=== PATIENT | male | born 1975 | race Caucasian/White ===

== ENCOUNTER 2021-01-22 23:03 | Inpatient (IN) | payer BC ==
[2021-01-22] MEDS ORDERED: ASPIRIN 81 MG PO STA ×2 (23:10)
[2021-01-22] MEDS ORDERED: SODIUM CHLORIDE 0.9% 1,000 ML IV STA (23:10)
[2021-01-22] MEDS ORDERED: HEPARIN SODIUM 1,000 UN/ML (10ML VL) IV ONE (23:10)
--- NOTE | 2021-01-22 23:14 | ED ---
Chest Pain HPI - General Chief Complaint: Chest Pain Stated Complaint: Possible STEMI Time Seen by Provider: 01/22/21 23:05 Source: patient, EMS, RN notes reviewed, old records reviewed Mode of arrival: EMS Limitations: no limitations - History of Present Illness Initial Comments: This is a 45-year-old male to the ER for evaluation patient presents today for evaluation regards to significant shortness of breath patient has may be a history of high blood pressure, unsure of any other medical history disease. No prior history of heart disease but does have a strong family history of heart disease a young age with his grandfather having heart attack young age. Patient himself has no recent travel history or sick contacts. No fevers no cough or c ongestion. Still short of breath he does feel diaphoretic. Patient was walking with his kids when he became significantly diaphoretic and short of breath with chest pressure. Left-sided chest pressure and pain has continued here in the ER symptoms about a half hour prior to arrival MD Complaint: chest pain -: minutes(s) (30) Onset: during rest, during exertion Pain Location: left chest Pain Radiation: none Severity: moderate Severity scale (1-10): 7 Quality: tightness, heaviness Consistency: constant, intermittent Improves With: nothing Worsens With: exertion Anginal Symptoms: nausea, diaphoresis, dyspnea, sense of impending doom Treatments Prior to Arrival: none - Related Data Allergies Allergy/AdvReac Type Severity Reaction Status Date / Time No Known Allergies Allergy Verified 01/22/21 23:09 Review of Systems ROS Statement: Those systems with pertinent positive or pertinent negative responses have been documented in the HPI. ROS Other: All systems not noted in ROS Statement are negative. Past Medical History History of Any Multi-Drug Resistant Organisms: None Reported Past Psychological History: No Psychological Hx Reported Smoking Status: Never smoker Past Alcohol Use History: None Reported Past Drug Use History: None Reported General Exam - General Exam Comments Initial Comments: Diaphoretic Limitations: no limitations General appearance: anxious Head exam: Present: atraumatic, normocephalic, normal inspection Eye exam: Present: normal appearance, PERRL, EOMI. Absent: scleral icterus, conjunctival injection, periorbital swelling ENT exam: Present: normal exam, mucous membranes moist Neck exam: Present: normal inspection. Absent: tenderness, meningismus, lymphadenopathy Respiratory exam: Present: normal lung sounds bilaterally. Absent: respiratory distress, wheezes, rales, rhonchi, stridor Cardiovascular Exam: Present: regular rate, normal rhythm, normal heart sounds. Absent: systolic murmur, diastolic murmur, rubs, gallop, clicks GI/Abdominal exam: Present: soft, normal bowel sounds. Absent: distended, tenderness, guarding, rebound, rigid Extremities exam: Present: normal inspection, full ROM, normal capillary refill. Absent: tenderness, pedal edema, joint swelling, calf tenderness Back exam: Present: normal inspection Neurological exam: Present: alert, oriented X3, CN II-XII intact Psychiatric exam: Present: normal affect, normal mood Skin exam: Present: warm, dry, intact, normal color. Absent: rash Course Vital Signs 01/22/21 23:05 Temperature 97.7 F Pulse Rate 87 Respiratory 20 Rate Blood Pressure 136/97 O2 Sat by Pulse 98 Oximetry - Reevaluation(s) Reevaluation #1: 01/22/21 23:21 Medical record is reviewed 01/22/21 23:21 Code STEMI was paged upon arrival with patient significant symptoms Reevaluation #2: 01/22/21 23:21 No prior EKG on file Reevaluation #3: 01/22/21 23:21 Spoke with patient regarding symptoms and need for heart catheterization, he understands - Consultations Consultation #1: Spoke with Dr. Duckworth regarding findings, Food Safety Scientist is paged. Consultation #2: Spoke with Dr. Kay regarding admission he agrees Chest Pain MDM - Differential Diagnosis AMI - MDM 45 male DF for evaluation of chest pain pressure diaphoresis, patient will be admitted to the [facility] Safety Scientist for heart catheterization regarding symptoms. Critical Care Time Critical Care Time: Yes Total Critical Care Time: 31 Disposition Clinical Impression: Chest pain, Acute non-ST elevation myocardial infarction (NSTEMI) Disposition: ADMITTED IP TO THIS HOSP Condition: Serious Is patient prescribed a controlled substance at d/c from ED?: No Referrals: Bucky Arboleda MD [Primary Care Provider] - 1-2 days
[2021-01-22] MEDS ORDERED: SODIUM CHLORIDE 0.9% 1,000 ML IV SCH (23:15)
[2021-01-22 23:25] LABS: Basophils # (A) 0.1 k/uL (0-0.2); Basophils % (A) 1 %; Eosinophils # (A) 0.3 k/uL (0-0.7); Eosinophils % (A) 4 %; HCT 43.9 % (39.0-53.0); HGB 15.1 gm/dL (13.0-17.5); Lymphocytes # (A) 3.1 k/uL (1.0-4.8); Lymphocytes % (A) 43 %; MCHC 34.4 g/dL (31.0-37.0); MCV 90.2 fL (80.0-100.0); Mean Platelet Volume 8.6; Monocytes # (A) 0.4 k/uL (0-1.0); Monocytes % (A) 6 %; Neutrophils # (A) 3.1 k/uL (1.3-7.7); Neutrophils % (A) 42 %; Platelet Count 204 k/uL (150-450); RBC 4.87 m/uL (4.30-5.90); RDW 12.6 % (11.5-15.5); WBC 7.3 k/uL (3.8-10.6)
--- NOTE | 2021-01-22 23:25 | XR ---
EXAMINATION TYPE: XR chest 1V DATE OF EXAM: 01/22/2021 COMPARISON: NONE HISTORY: Chest pain TECHNIQUE: Single view FINDINGS: Heart and mediastinum are normal. There is slight increased interstitial markings. There is no pleural effusion. There are no hilar masses. There are chest leads. There is arthritic change in the right shoulder joint. IMPRESSION: Mild increased lung markings. No pulmonary consolidation or heart failure.
--- NOTE | 2021-01-22 23:43 | P.CRDCN ---
History of Present Illness History of present illness: HISTORY OF PRESENTING ILLNESS This is a pleasant 45-year-old with past medical history significant for family history of coronary artery disease and orthopedic complaints. Patient was campi ng and walking with his son earlier today and then started to notice shortness breath, left-sided chest pain radiating down the arm and associated with diaphoresis. It was somewhat off and on however then became more intense. 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 He was given 4 baby aspirin and nitroglycerin with some improvement in his chest pain. Initial EKG showed sinus rhythm with left bundle branch block with accentuated discordant ST elevations in V3 V4 concerning for Scarbossa's criteria however this did improve on repeat EKG by the time he presented to emergency department. Patient still is having ongoing mild chest discomfort however much improved from beginning. He does have a family history of grandfather with [place] in his 40s however has been checked with supposedly normal cholesterol in the past. He does not smoke, drinks a few beers most days, no illicit drugs. No prior history of left bundle-branch block. REVIEW OF SYSTEMS At the time of my exam: CONSTITUTIONAL: Denies fever or chills. CARDIOVASCULAR: +chest pain, +shortness of breath, no orthopnea, PND or palpitations. RESPIRATORY: Denies cough. GASTROINTESTINAL: Denies abdominal pain, diarrhea, constipation, nausea or vomiting. MUSCULOSKELETAL: Denies myalgias. NEUROLOGIC: Denies numbness, tingling or weakness. ENDOCRINE: Denies fatigue, weight change, polydipsia or polyurina. GENITOURINARY: Denies burning, hematuria or urgency with micturation. HEMATOLOGIC: Denies history of anemia or bleeding. PHYSICAL EXAMINATION Vital signs reviewed. CONSTITUTIONAL: Mild distress. HEENT: Head is normocephalic. Pupils are equal, round. Sclerae anicteric. Mucous membranes of the mouth are moist. No JVD. No carotid bruit. CHEST EXAMINATION: Lungs are clear to auscultation. No chest wall tenderness is noted on palpation or with deep breathing. HEART EXAMINATION: Regular rate and rhythm. S1, S2 heard. No murmurs, gallops or rub. ABDOMEN: Soft, nontender. Positive bowel sounds. EXTREMITIES: 2+ peripheral pulses, no lower extremity edema and no calf tenderness. NEUROLOGIC EXAMINATION: Patient is awake, alert and oriented x3. ASSESSMENT 1. New-onset left bundle branch block with initial EKG concerning for Scarbossa's criteria, consistent with STEMI equivalent 2. Chest pain, diaphoresis, shortness breath concerning for acute coronary syndrome 3. Alcohol use 4. Family history of coronary artery disease PLAN Patient with signs and symptoms consistent with acute coronary syndrome. EKG with new onset left bundle branch block concerning for STEMI equivalent. Discussed risks and benefits of heart catheterization and patient is agreeable. Check 2-D echo. Trend troponins. Further recommendations to follow. Past Medical History History of Any Multi-Drug Resistant Organisms: None Reported Past Psychological History: No Psychological Hx Reported Smoking Status: Never smoker Past Alcohol Use History: None Reported Past Drug Use History: None Reported Medications and Allergies Home Medications Medication Instructions Recorded Confirmed Type Diclofenac Sodium [Voltaren] 75 mg PO BID 01/22/21 01/22/21 History Allergies Allergy/AdvReac Type Severity Reaction Status Date / Time No Known Allergies Allergy Verified 01/22/21 23:09 Physical Exam Vitals: Vital Signs Temp Pulse Resp BP Pulse Ox 01/22/21 23:05 97.7 F 87 20 136/97 98 Intake and Output 01/22/21 01/22/21 01/23/21 14:59 22:59 06:59 Other: Weight 97.522 kg Results 01/22/21 23:15 CBC 01/22/21 Range/Units 23:15 WBC 7.3 (3.8-10.6) k/uL RBC 4.87 (4.30-5.90) m/uL Hgb 15.1 (13.0-17.5) gm/dL Hct 43.9 (39.0-53.0) % Plt Count 204 (150-450) k/uL Current Medications Generic Name Dose Route Start Last Admin Trade Name Freq PRN Reason Stop Dose Admin Aspirin 325 mg 01/23/21 09:00 Aspirin 325 Mg Tab PO DAILY RYLAN Sodium Chloride 1,000 mls @ 100 mls/hr 01/22/21 23:10 01/22/21 23:17 Saline 0.9% IV 01/23/21 09:09 100 mls/hr .Q10H STA Administration Sodium Chloride 1,000 mls @ 100 mls/hr 01/22/21 23:15 01/22/21 23:19 Saline 0.9% IV Not Given .Q10H RYLAN Intake and Output 01/22/21 01/22/21 01/23/21 14:59 22:59 06:59 Other: Weight 97.522 kg Patient Weight 01/23/21 06:59 Weight 97.522 kg 01/22/21 23:15
[2021-01-22 23:44] LABS: INR 0.9 (<1.2); Prothrombin Time 10.1 sec (9.0-12.0)
[2021-01-22 23:46] LABS: ALT 33 U/L (4-49); AST 40 U/L (17-59); African American GFR (CKD) >90 (>60 ml/min/1.73 sqM); Albumin 4.1 g/dL (3.5-5.0); Alkaline Phosphatase 51 U/L (38-126); Anion Gap 10 mmol/L; Blood Urea Nitrogen 21 mg/dL (9-20); Calcium 9.3 mg/dL (8.4-10.2); Carbon Dioxide 21 mmol/L (22-30); Chloride 110 mmol/L (98-107); Creatine Kinase 236 U/L (55-170); Glucose 141 mg/dL (74-99); Magnesium 1.9 mg/dL (1.6-2.3); Non-African American GFR(CKD) >90 (>60 ml/min/1.73 sqM); Potassium 3.8 mmol/L (3.5-5.1); Sodium 141 mmol/L (137-145); Total Bilirubin 0.3 mg/dL (0.2-1.3); Total Protein 6.6 g/dL (6.3-8.2)
[2021-01-22] MEDS ORDERED: LIDOCAINE 1% INJ 10MG/ML (20 ML MDV) ONE (23:46)
[2021-01-22] MEDS ORDERED: HEPARIN SODIUM 1,000 UN/ML (10ML VL) ONE (23:46)
[2021-01-22] MEDS ORDERED: VERAPAMIL 2.5 MG/ML 2 ML AMP ONE (23:46)
[2021-01-22] MEDS ORDERED: IV FLUID CONTINUATION 1,000 ML IV ONE (23:50)
[2021-01-22] MEDS ORDERED: fentaNYL (PF) 50 MCG/ML 2 ML AMP ONE (23:52)
[2021-01-22] MEDS: fentaNYL (PF) 50 MCG/ML 2 ML AMP IV ONE (23:52)
[2021-01-22] MEDS: MIDAZOLAM 2 MG/2 ML VIAL IV ONE (23:52)
[2021-01-22] MEDS ORDERED: LIDOCAINE 1% INJ 10MG/ML (20 ML MDV) SQ ONE (23:52)
[2021-01-22 23:53] LABS: Partial Thromboplastin Time 21.3 sec (22.0-30.0)
[2021-01-22] MEDS ORDERED: VERAPAMIL SYRINGE (5 MG/10 ML) INTRAARTER ONE (23:54)
[2021-01-22 23:57] LABS: Creatine Kinase MB 1.8 ng/mL (0.0-2.4); Troponin I 0.016 ng/mL (0.000-0.034)
[2021-01-23] MEDS ORDERED: TICAGRELOR 90 MG TAB ONE (00:09)
[2021-01-23] MEDS ORDERED: IOPAMIDOL-370 125ML BTL INJ ONE (00:10)
[2021-01-23] MEDS ORDERED: TICAGRELOR 90 MG TAB PO ONE (00:13)
[2021-01-23] MEDS: NITROGLYCERIN 1000MCG/10ML SYRINGE INTRACORON ONE ×7 (00:17→01:05)
[2021-01-23] MEDS ORDERED: NITROGLYCERIN-D5W PMX 50 MG in DEXTROSE/WATER 1 250ML.BAG IV ONE (00:38)
[2021-01-23] MEDS ORDERED: IOPAMIDOL-370 100ML BTL INJ ONE ×2 (00:46→01:09)
[2021-01-23] MEDS: MIDAZOLAM 2 MG/2 ML VIAL IV ONE (00:52)
[2021-01-23] MEDS: fentaNYL (PF) 50 MCG/ML 2 ML AMP IV ONE (00:52)
[2021-01-23] MEDS ORDERED: hydrALAZINE HCL 20 MG/ML 1 ML VIAL ONE (01:07)
[2021-01-23] MEDS: hydrALAZINE HCL 20 MG/ML 1 ML VIAL IV ONE ×2 (01:09→01:14)
[2021-01-23] MEDS ORDERED: FUROSEMIDE 10 MG/ML 4 ML VIAL ONE (01:32)
[2021-01-23] MEDS ORDERED: FUROSEMIDE 10 MG/ML 4 ML VIAL IV ONE (01:33)
[2021-01-23] MEDS ORDERED: ATROPINE SULFATE 0.1 MG/ML 10ML SYRINGE IV PRN (01:50)
[2021-01-23] MEDS ORDERED: ZOLPIDEM 5 MG TAB PO PRN (01:50)
[2021-01-23] MEDS ORDERED: MAG HYDROX/AL HYDROX/SIMETH 30 ML CUP PO PRN (01:50)
[2021-01-23] MEDS ORDERED: NITROGLYCERIN SL TABS 0.4 MG TAB SUBLINGUAL PRN (01:50)
[2021-01-23] MEDS ORDERED: RX INFO: IV CONTRAST WAS GIVEN 1 EACH MISC MISCELLANE PRN (01:50)
[2021-01-23 01:52] LABS: Glucose,Whole Blood 127 mg/dL (75-99)
--- NOTE | 2021-01-23 02:13 | P.PRCINT ---
Percutaneous Coronary Int. - Percutaneous Coronary Intervention Percutaneous Coronary Intervention: PROCEDURES PERFORMED: Left heart catheterization, bilateral coronary angiography, PCI proximal LAD with a 3.25 x 18mm Xience ALFREDO, with kissing balloon angioplasty of LAD and diagonal 2 branch, Penumbra aspiration thromb ectomy INDICATION: ACS, STEMI equivalent HISTORY: Patient is pleasant 45-year-old male with a family history of grandfather with [place] in his 40s, occasional alcohol use who presented with chest pain while walking to his children while camping. Chest pain was somewhat off and on however he recognizes symptoms early and presented to ER with new left bundle-branch block, shortness breath and diaphoresis and therefore STEMI alert was notified. Given new left bundle-branch block in typical symptoms left heart catheterization was recommended. CONSENT:I have discussed the risks, benefits and alternative therapies for the above-mentioned procedure and for both sedation/analgesia as well as necessary blood product administration, if indicated, as they pertain to this patient. The patient has indicated understanding and acceptance of the risks and procedures discussed. PROCEDURE: After the risks, benefits and alternatives of the above mentioned procedure explained in detail with the patient, informed consent was obtained. Patient was taken to the catheterization lab and prepped and draped in usual fashion. 1% lidocaine was used to anesthetize the right radial artery. A 6- Lao sheath was placed in the right radial artery using modified Seldinger technique. Left coronary angiography was performed with a 5-Lao JL 3.5 catheter and right coronary angiography was performed with a 5-Lao JR5 catheter in various views. A 5-Lao FR5 catheter was inserted into the left ventricle and pressure measurements were obtained. The decision was made to perform PCI of the LAD. A 6-Lao CLS 3.5 guide was used to engage the left main. Heparin was given for ACT greater than 250. A 0.014 BMW wire was advanced into the distal LAD and penumbra aspiration was performed given high thrombus burden. There was additional involvement of the diagonal 2 branch and therefore a 0.014 whisper wire was inserted into the distal diagonal 2 branch. Balloon angioplasty was performed of the ostium of the diagonal 2 branch with a 2.5 x 12 mm wound and then a 3.0 x 15 mm balloon. Next balloon angioplasty was performed of the LAD with a 3.0 x 15 mm balloon. Next a 3.25 x 18 mm Xience ALFREDO was placed just distal to the diagonal 1 branch and jailing the diagonal 2 branch. There was significant "pinching" of the diagonal 2 branch and therefore a second 0.014 BMW wire was advanced into the diagonal 2 branch and the initial whisper wire was removed. Next balloon angioplasty was performed of the diagonal 2 branch with a 2.0 x 12 mm balloon through the stent struts. Next a kissing angioplasty was performed with a 3.0 x 12 mm noncompliant balloon in the LAD and a 2.5 x 15 mm noncompliant balloon in the diagonal 2 branch. The wires were pulled and final angiograms were performed. Preintervention there was WENCESLAO 3 flow of the LAD and diagonal 2 branch with 95% stenosis of the LAD and 95% stenosis of the diagonal 2 branch and postintervention there was less than 10% stenosis of the LAD and 30% stenosis of the diagonal 2 branch which was ballooned with WENCESLAO 3 flow of both. Patient was still having mild chest pain throughout the case felt related to distal embolization and microvascular dysfunction. The right radial sheath was removed and a TR band was placed with hemostasis achieved. The patient tolerated the procedure well. Patient was transported back to the post catheterization holding area in stable condition. Conscious Sedation: Patient was monitored under the direct supervision of vision of myself for conscious sedation using Versed and fentanyl for a total duration of 90 minutes HEMODYNAMICS: Ao: 128/92 LV: 130/12, LVEDP 31 mmHG SELECTIVE CORONARY ARTERIOGRAPHY: LEFT MAIN: The left main is a large caliber vessel which bifurcates into the LAD and circumflex. There is no significant stenosis. LEFT ANTERIOR DESCENDING CORONARY ARTERY: LAD is a large caliber vessel which wraps around to the apex. There is a proximal LAD 95% stenosis extending into the diagonal 2 branch with a large amount of thrombus. Diagonal 2 has a 95% ostial stenosis. There is mid LAD 20% stenosis and otherwise normal LAD. LEFT CIRCUMFLEX CORONARY ARTERY: Left circumflex is a large caliber vessel with only mild luminal irregularities. The circumflex supplies the PDA and is the dominant vessel. There are mild luminal irregularities of the circumflex. RIGHT CORONARY ARTERY: The right coronary artery is a small caliber vessel which gives off an acute marginal branch and has no signficant stenosis and is nondominant. FINAL IMPRESSION: 1. CAD as described above including proximal LAD 95% and diagonal 2 95% stenosis at the level of the LAD/diagonal 2 bifurcation. 2. Severely elevated left filling pressures 3. S/p PCI proximal LAD with a 3.25 x 18mm Xience ALFREDO, with kissing balloon angioplasty of LAD and diagonal 2 branch PLAN: 1. Aggressive risk factor modification per most recent ACC/AHA guidelines. 2. Continue dual antiplatelets for 12 months.
[2021-01-23] MEDS ORDERED: NITROGLYCERIN-D5W PMX 50 MG in DEXTROSE/WATER 1 250ML.BAG IV SCH (02:30)
[2021-01-23] MEDS: METOPROLOL TARTRATE 25 MG TAB PO SCH ×3 (02:37→21:32)
[2021-01-23] MEDS: HEPARIN SOD,PORK IN 0.45% NACL 25,000 UNIT in 0.45% NACL 1 250ML.BAG IV SCH ×2 (03:11→23:30)
[2021-01-23] MEDS: SODIUM CHLORIDE 0.9% 1,000 ML IV SCH (03:13)
[2021-01-23 04:21] LABS: African American GFR (CKD) >90 (>60 ml/min/1.73 sqM); Anion Gap 7 mmol/L; Blood Urea Nitrogen 20 mg/dL (9-20); Calcium 8.9 mg/dL (8.4-10.2); Carbon Dioxide 22 mmol/L (22-30); Chloride 108 mmol/L (98-107); Glucose 162 mg/dL (74-99); Non-African American GFR(CKD) >90 (>60 ml/min/1.73 sqM); Sodium 137 mmol/L (137-145)
[2021-01-23 04:21] LABS: Basophils % (A) 0 %; Eosinophils % (A) 0 %; HCT 40.2 % (39.0-53.0); HGB 13.8 gm/dL (13.0-17.5); Lymphocytes # (A) 0.9 k/uL (1.0-4.8); Lymphocytes % (A) 11 %; MCH 30.7 pg (25.0-35.0); MCHC 34.2 g/dL (31.0-37.0); MCV 89.9 fL (80.0-100.0); Mean Platelet Volume 8.2; Monocytes # (A) 0.5 k/uL (0-1.0); Monocytes % (A) 6 %; Neutrophils # (A) 7.1 k/uL (1.3-7.7); Neutrophils % (A) 82 %; Platelet Count 214 k/uL (150-450); RBC 4.48 m/uL (4.30-5.90); RDW 13.2 % (11.5-15.5); WBC 8.7 k/uL (3.8-10.6)
[2021-01-23 04:22] LABS: Partial Thromboplastin Time 39.8 sec (22.0-30.0); Prothrombin Time 10.6 sec (9.0-12.0)
[2021-01-23] MEDS: ASPIRIN 81 MG PO SCH (08:24)
[2021-01-23] MEDS: SPIRONOLACTONE 25 MG TAB PO SCH (08:24)
[2021-01-23] MEDS: ATORVASTATIN 80 MG TAB PO SCH (08:24)
[2021-01-23] MEDS: FUROSEMIDE 20 MG TAB PO SCH ×2 (08:24→21:31)
[2021-01-23] MEDS: HEPARIN SODIUM 1,000 UN/ML (10ML VL) IV PRN (08:24)
[2021-01-23] MEDS: TICAGRELOR 90 MG TAB PO SCH ×2 (08:38→21:31)
[2021-01-23] MEDS ORDERED: ASPIRIN 325 MG TAB PO SCH (09:00)
[2021-01-23] MEDS ORDERED: ISOSORBIDE MONONITRATE ER 30 MG TAB.ER.24H PO SCH (09:00)
[2021-01-23 09:56] LABS: Chol/HDL Ratio 3.97; LDL Cholesterol,Calculated 100.2 mg/dL (0.0-131.0); VLDL Calculation 12.8 mg/dL (5.00-40.00)
[2021-01-23 10:15] VITALS: BMI 28.9
--- NOTE | 2021-01-23 11:53 | ECHOF ---
Referral Reason:mi MEASUREMENTS -------- HEIGHT: 188.0 cm WEIGHT: 102.1 kg BP: 102/62 RVIDd: 3.0 cm (< 3.3) IVSd: 1.6 cm (0.6 - 1.1) LVIDd: 5.2 cm (3.9 - 5.3) LVPWd: 1.4 cm (0.6 - 1.1) IVSs: 1.9 cm LVIDs: 3.7 cm LVPWs: 1.9 cm LA Diam: 3.7 cm (2.7 - 3.8) LAESV Index (A-L): 25.07 ml/m Ao Diam: 3.5 cm (2.0 - 3.7) AV Cusp: 2.6 cm (1.5 - 2.6) MV EXCURSION: 20.477 mm (> 18.000) MV EF SLOPE: 130 mm/s (70 - 150) EPSS: 0.7 cm MV E Quique: 0.84 m/s MV DecT: 151 ms MV A Quique: 0.73 m/s MV E/A Ratio: 1.15 TAPSE: 19.78 mm FINDINGS -------- Sinus rhythm. This was a technically good study. The left ventricular size is normal. There is moderate concentric left ventricular hypertrophy. O verall left ventricular systolic function is moderately impaired with, an EF between 35 - 40 %. Api [place] anterior LV wall motion is hypokinetic. Apical lateral LV wall motion is hypokinetic. Apica l inferior LV wall motion is hypokinetic. Apical septum LV wall motion is hypokinetic. The right ventricle is normal in size. Normal LA size by volume 22+/-6 ml/m2. The right atrium is normal in size. Interatrial and interventricular septum intact. The aortic valve is trileaflet, and appears structurally normal. No aortic stenosis or regurgitation. There is trace to mild mitral regurgitation. The tricuspid valve appears structurally normal. Unable to estimate RVSP due to inadequate TR jet s pectral doppler profile. The pulmonic valve is normal. The aortic root size is normal. Normal inferior vena cava with normal inspiratory collapse consistent with estimated right atrial pre ssure of 5 mmHg. There is no pericardial effusion. CONCLUSIONS -------- 1. The left ventricular size is normal. 2. There is moderate concentric left ventricular hypertrophy. 3. Overall left ventricular systolic function is moderately impaired with, an EF between 35 - 40 %. 4. Apical anterior LV wall motion is hypokinetic. 5. Apical lateral LV wall motion is hypokinetic. 6. Apical inferior LV wall motion is hypokinetic. 7. Apical septum LV wall motion is hypokinetic. 8. The aortic valve is trileaflet, and appears structurally normal. No aortic stenosis or regurgitati on. 9. There is trace to mild mitral regurgitation. 10. There is no pericardial effusion. IOS ARCHITECT: Maria D Durant RDCS
--- NOTE | 2021-01-23 12:18 | P.HPIM ---
History of Present Illness H&P Date: 01/23/21 HISTORY OF PRESENT ILLNESS This is a 45-year-old male patient of Dr. Arboleda with history of OA right shoulder s/p injections. Patient states that he was camping with his family and he was carrying his son started developing a little bit of chest pain which she has had before but it usually goes away. He went to carry his second son who is rust proofer in weight had increasing tightness, pain in the left arm, sweats, nausea, palpitations and lightheadedness. EMS was contacted and patient was transferred to [facility] emergency center for evaluation. Vi herlinda signs are stable. EKG was a left bundle branch block with ST elevation in V3 V4, cardiology was contacted and patient was taken emergently to the laborer wrecking and salvaging and underwent left heart catheterization, bilateral coronary angiography, PCI proximal LAD with a 3.25 x 18mm Xience ALFREDO, with kissing balloon angioplasty of LAD and diagonal 2 branch, Penumbra aspiration thrombectomy with Dr. Duckworth. Patient is currently maintained in the intensive care unit on heparin drip and nitroglycerin drip. He states he occasionally gets some chest pain on the left side. He has been hemodynamically stable. REVIEW OF SYSTEMS Constitutional: No fever, no chills, Reported sweats. No weight change. No weakness, fatigue or lethargy. No daytime sleepiness. EENT: No headache. No blurred vision or double vision, no loss of vision. No dizziness. No nasal drainage or congestion. No epistaxis. No sore throat. Lungs: No shortness of breath, cough, no sputum production. No wheezing. Cardiovascular: Reported chest pain, no lower extremity edema. No palpitations. No paroxysmal nocturnal dyspnea. No orthopnea. No lightheadedness or dizziness. No syncopal episodes. Abdominal: No abdominal pain. Reported nausea, vomiting. No diarrhea. No constipation. No bloody or tarry stools. No loss of appetite. Genitourinary: No dysuria, increased frequency, urgency. No urinary retention. Musculoskeletal: No myalgias. No muscle weakness, no gait dysfunction, no frequent falls. No back pain. No neck pain. Integumentary: No wounds, no lesions. No rash or pruritus. No unusual bruising. No change in hair or nails. Neurologic: No aphasia. No facial droop. No change in mentation. No head injury. No headache. No paralysis. No paresthesia. Psychiatric: No depression. No anxiety. No mood swings. Endocrine: No abnormal blood sugars. MEDICAL HISTORY Osteoarthritis right shoulder SURGICAL HISTORY Ankle surgery SOCIAL HISTORY Patients smoked for a few years while he was in the [employer] at less than pack per day for 5 years. He does drink alcohol about 3 drinks on his nights off work. Patient lives at home with his and 2 sons. 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 FAMILY HISTORY Mother is alive at age 68 with history of hypertension and smoking. Father at age 58 from consultations from diabetes. Patient has a total of 6 siblings and one sister has passed at age 33 from a brain cancer. All other siblings are alive with no major medical problems and no cardiac history. Patient has 1 paternal grandfather that of a myocardial infarction in his 30s. Patient has 2 sons and one 7-year-old has neuroblastoma. Second son has no major medical problems. PHYSICAL EXAMINATION Gen: This is a 45-year-old male. He is resting in the ICU bed and appears to be comfortable and in no acute distress. HEENT: Head is atraumatic, normocephalic. Pupils equal, round. Sclerae is anicteric. NECK: Supple. No JVD. No lymphadenopathy. No thyromegaly. LUNGS: Clear to auscultation. No wheezes or rhonchi. No intercostal retractions. HEART: Regular rate and rhythm. No murmur. ABDOMEN: Soft. Bowel sounds are present. No masses. No tenderness. EXTREMITIES: No pedal edema. No calf tenderness. Dorsalis pedis +2 bilaterally. NEUROLOGICAL: Patient is awake, alert and oriented x3. Cranial nerves 2 through 12 are grossly intact. ASSESSMENT AND PLAN 1. New-onset left bundle branch block with initial EKG concerning for Scarbossa's criteria, consistent with STEMI equivalent. Status post left heart catheterization, bilateral coronary angiography, PCI LAD with kissing balloon angioplasty of the LAD and diagonal 2 branch, aspiration thrombectomy. Patient is maintained in the intensive care unit. He is currently on heparin drip and nitroglycerin drip. Continue aspirin 81 mg daily, Lipitor 80 mg daily, Lasix 20 mg twice daily, Imdur 30 mg daily, lisinopril 2.5 mg twice daily, Lopressor 25 mg twice daily, Aldactone 25 mg daily, Brilinta 90 mg twice daily. Echocardiogram is pending 2. Osteoarthritis right shoulder, stable. 3. Alcohol use. 4. GI prophylaxis. Protonix. 5. DVT prophylaxis. Heparin. DISCHARGE PLAN Home Impression and plan of care have been directed as dictated by the signing physician. Sushila Segovia nurse practitioner acting as scribe for signing physician. Past Medical History Past Medical History: Hypertension, Myocardial Infarction (IA) Last Myocardial Infarction Date:: 01/22/21 History of Any Multi-Drug Resistant Organisms: None Reported Past Surgical History: Heart Catheterization With Stent Date of Last Stent Placement:: 01/22/21 Past Psychological History: No Psychological Hx Reported Smoking Status: Former smoker Past Alcohol Use History: Occasional Additional Past Alcohol Use History / Comment(s): drinks approximately 10 "drinks" per week Past Drug Use History: None Reported - Past Family History Father Family Medical History: Diabetes Mellitus Mother Family Medical History: Hypertension Medications and Allergies Home Medications Medication Instructions Recorded Confirmed Type Diclofenac Sodium [Voltaren] 75 mg PO BID 01/22/21 01/22/21 History Ticagrelor [Brilinta] 90 mg PO BID #60 tab 01/23/21 Rx Allergies Allergy/AdvReac Type Severity Reaction Status Date / Time No Known Allergies Allergy Verified 01/22/21 23:09 Physical Exam Vitals: Vital Signs Temp Pulse Resp BP Pulse Ox 01/23/21 09:00 73 16 116/82 96 01/23/21 08:00 98 F 66 16 117/75 97 01/23/21 07:00 75 11 L 102/62 97 01/23/21 06:45 76 11 L 105/60 97 01/23/21 06:30 73 18 114/74 97 01/23/21 06:15 72 19 115/71 97 01/23/21 06:00 98.5 F 68 16 111/59 97 01/23/21 05:45 77 16 106/63 97 01/23/21 05:30 84 17 110/63 97 01/23/21 05:15 75 17 123/79 96 01/23/21 05:00 71 17 116/72 96 01/23/21 04:45 75 14 123/75 96 01/23/21 04:30 82 16 119/78 96 01/23/21 04:15 80 19 123/78 97 01/23/21 04:00 98.5 F 84 16 124/70 98 01/23/21 03:45 89 11 L 116/73 97 01/23/21 03:41 96 01/23/21 03:30 86 11 L 108/74 96 01/23/21 03:15 86 10 L 112/72 94 L 01/23/21 03:00 78 12 112/71 97 01/23/21 02:45 84 23 114/71 95 01/23/21 02:30 82 15 95 01/23/21 02:20 18 01/23/21 02:15 84 13 127/85 96 01/23/21 02:00 81 12 119/81 96 01/22/21 23:35 78 12 141/103 98 01/22/21 23:30 80 12 131/101 98 01/22/21 23:25 79 12 136/104 99 01/22/21 23:15 80 12 133/100 98 01/22/21 23:05 97.7 F 87 20 136/97 98 Intake and Output 01/22/21 01/23/21 01/23/21 22:59 06:59 14:59 Intake Total 820 239.25 Output Total 1200 Balance -380 239.25 Intake: IV 820 40 Sodium Chloride 0.9% 1, 120 40 000 ml @ 20 mls/hr IV . Q24H RYLAN Rx#:[id number] Intake, IV Titration 199.25 Amount Heparin Sod,Pork in 0.45% 46 NaCl 25,000 unit In 0.45 % NaCl 1 250ml.bag @ 10. 254 UNITS/KG/HR 10 mls/hr IV .Q24H RYLAN Rx#: [id number] Nitroglycerin-D5w Pmx 50 153.25 mg In Dextrose/Water 1 250ml.bag @ 100 MCG/MIN 30 mls/hr IV .Q8H20M RYLAN Rx#:[id number] Output: Urine 1200 Other: # Voids 1 Weight 102.3 kg 102.3 kg Results CBC & Chem 7: 01/23/21 03:23 01/23/21 03:28 Labs: Abnormal Lab Results - Last 24 Hours (Table) 01/22/21 01/22/21 01/23/21 Range/Units 23:15 23:15 01:49 Lymphocytes # (1.0-4.8) k/uL APTT 21.3 L (22.0-30.0) sec Chloride 110 H (98-107) mmol/L Carbon Dioxide 21 L (22-30) mmol/L BUN 21 H (9-20) mg/dL Glucose 141 H (74-99) mg/dL POC Glucose (mg/dL) 127 H (75-99) mg/dL Creatine Kinase 236 H (55-170) U/L Troponin I (0.000-0.034) ng/mL HDL Cholesterol (40.0-60.0) mg/dL 01/23/21 01/23/21 01/23/21 Range/Units 03:23 03:23 03:23 Lymphocytes # 0.9 L (1.0-4.8) k/uL APTT (22.0-30.0) sec Chloride (98-107) mmol/L Carbon Dioxide (22-30) mmol/L BUN (9-20) mg/dL Glucose (74-99) mg/dL POC Glucose (mg/dL) (75-99) mg/dL Creatine Kinase (55-170) U/L Troponin I 11.600 H* (0.000-0.034) ng/mL HDL Cholesterol 38.0 L (40.0-60.0) mg/dL 01/23/21 01/23/21 01/23/21 Range/Units 03:23 03:28 07:17 Lymphocytes # (1.0-4.8) k/uL APTT 39.8 H 33.3 H (22.0-30.0) sec Chloride 108 H (98-107) mmol/L Carbon Dioxide (22-30) mmol/L BUN (9-20) mg/dL Glucose 162 H (74-99) mg/dL POC Glucose (mg/dL) (75-99) mg/dL Creatine Kinase (55-170) U/L Troponin I (0.000-0.034) ng/mL HDL Cholesterol (40.0-60.0) mg/dL 01/23/21 Range/Units 07:17 Lymphocytes # (1.0-4.8) k/uL APTT (22.0-30.0) sec Chloride (98-107) mmol/L Carbon Dioxide (22-30) mmol/L BUN (9-20) mg/dL Glucose (74-99) mg/dL POC Glucose (mg/dL) (75-99) mg/dL Creatine Kinase (55-170) U/L Troponin I 23.100 H* (0.000-0.034) ng/mL HDL Cholesterol (40.0-60.0) mg/dL Thrombosis Risk Factor Assmnt - Choose All That Apply Each Factor Represents 1 point: Acute IA, Age 41-60 years, Obesity (BMI >25) Thrombosis Risk Factor Assessment Total Risk Factor Score: 3 Thrombosis Risk Factor Assessment Level: Moderate Risk
--- NOTE | 2021-01-23 14:17 | PN ---
PROGRESS NOTE Mr. Yusuf is 45-year-old male with history of premature coronary artery disease who presented with symptoms of chest discomfort and left bundle branch block, underwent cardiac catheterization by Dr. Duckworth, was found to have significant obstructive disease involving the LAD and underwent stenting of the LAD using a 3.25 by 18 mm Xience 5 point stent with balloon angioplasty of the diagonal branch. He had some chest discomfort postprocedure. This morning his chest discomfort is almost resolved completely. His left ventricular end-diastolic pressure was elevated. His breathing is better this morning. He is being maintained on IV heparin and IV nitroglycerin. He denies any dizziness or palpitation. He continues to be in sinus mechanism. He has no palpitation. Denies any nausea or vomiting. He has no prior cardiac history. He continues to be at this time on IV heparin, IV nitroglycerin, aspirin once a day, metoprolol tartrate 25 mg twice a day, Brilinta 90 mg twice a day. PHYSICAL EXAMINATION: Blood pressure running in the low 100s with a heart rate in 70s. LUNGS: Clear. HEART: Regular rate and rhythm. S1, S2. No S3. No rub appreciated. ABDOMEN: Soft, nontender. EXTREMITIES: No edema. Right radial pulse intact. LAB DATA: Lab data revealed troponin of 11.6, BUN and creatinine 20 and 0.8, hemoglobin is 13.8. IMPRESSION: 1. Status post anterior myocardial infarction and stenting of the LAD and angioplasty of the diagonal branch. 2. Elevated left ventricular end-diastolic pressure consistent with the acute ischemic event. 3. Family history of premature coronary disease. RECOMMENDATION: From the cardiac standpoint I will wean the IV nitroglycerin. I will start him on oral nitrate and MELISA inhibitor. I will add Aldactone and a statin to his regimen. An echocardiogram with Doppler will be obtained. Depending on his progress, further recommendation will be made. MMODL / IJN: [id number] /
[2021-01-24 04:35] LABS: African American GFR (CKD) >90 (>60 ml/min/1.73 sqM); Non-African American GFR(CKD) >90 (>60 ml/min/1.73 sqM)
[2021-01-24] MEDS: HEPARIN SODIUM 1,000 UN/ML (10ML VL) IV PRN (06:03)
[2021-01-24] MEDS: SODIUM CHLORIDE 0.9% 1,000 ML IV SCH (06:05)
[2021-01-24] MEDS: SPIRONOLACTONE 25 MG TAB PO SCH (09:19)
[2021-01-24] MEDS: TICAGRELOR 90 MG TAB PO SCH ×2 (09:19→20:38)
[2021-01-24] MEDS: FUROSEMIDE 20 MG TAB PO SCH (09:19)
[2021-01-24] MEDS: ASPIRIN 81 MG PO SCH (09:19)
[2021-01-24] MEDS: METOPROLOL TARTRATE 25 MG TAB PO SCH ×2 (09:19→20:38)
[2021-01-24] MEDS: lisinopriL 5 MG TAB PO SCH ×2 (09:19→20:38)
[2021-01-24] MEDS: ATORVASTATIN 80 MG TAB PO SCH (09:19)
--- NOTE | 2021-01-24 10:47 | PN ---
PROGRESS NOTE Mr. Yusuf is a 45-year-old male with no prior documented history of coronary artery disease who presented with an acute myocardial infarction. He underwent coronary angiography and stenting of the LAD by Dr. Duckworth. He is doing well this morning. He has no chest pain. His breathing has been stable. He denies any dizziness or palpitation. He denies any nausea. He continues to be in sinus mechanism. He continues to be on aspirin once a day, Lipitor 80 mg daily, Lasix 20 mg twice a day, IV heparin, isosorbide mononitrate 30 mg daily, lisinopril 2.5 mg twice a day, metoprolol tartrate 25 mg twice a day, spironolactone 25 mg daily, Brilinta 90 mg twice a day. PHYSICAL EXAMINATION: Blood pressure 103/60 with a heart rate in the 70s. LUNGS: Clear. HEART: Regular rate and rhythm. S1, S2. No S3. No rub. ABDOMEN: Soft, nontender. EXTREMITIES: No edema. LAB DATA: Lab data revealed a peak troponin of 28 and his NT-proBNP was 1270. His echocardiogram revealed an ejection fraction of 35% to 40% with controlled apical and inferoapical hypokinesis consistent with his myocardial infarction. IMPRESSION: 1. Status post myocardial infarction involving the LAD, status post stenting. 2. Ischemic cardiomyopathy. Hopefully stunt myocardium in view of the low peak of his troponin. 3. Family history of premature coronary disease. RECOMMENDATIONS: I will stop the heparin. I will stop the nitrates at this time, decrease the dose of the diuretic, and increase the dose of his lisinopril. He should be able to be transferred to the telemetry floor and increase his level activity. Depending on his progress, further recommendations will be made. MMODL / IJN: [id number] / MTDD
--- NOTE | 2021-01-24 15:21 | P.PN ---
Subjective Progress Note Date: 01/24/21 HISTORY OF PRESENT ILLNESS This is a 45-year-old male patient of Dr. Arboleda with history of OA right shoulder s/p injections. Patient states that he was camping with his family and he was carrying his son started developing a little bit of chest pain which she has had before but it usually goes away. He went to carry his second son who is material dispatcher in weight had increasing tightness, pain in the left arm, sweats, nausea, palpitations and lightheadedness. EMS was contacted and patient was transferred to [facility] emergency center for evaluation. Vital signs are stable. EKG was a left bundle branch block with ST elevation in V3 V4, cardiology was contacted and patient was taken emergently to the drop crew laborer and underwent left heart catheterization, bilateral coronary angiography, PCI proximal LAD with a 3.25 x 18mm Xience ALFREDO, with kissing balloon angioplasty of LAD and diagonal 2 branch, Penumbra aspiration thrombectomy with Dr. Duckworth. Patient is currently maintained in the intensive care unit on heparin drip and nitroglycerin drip. He states he occasionally gets some chest pain on the left side. He has been hemodynamically stable. 01/24: Echocardiogram reveals EF of 35-40% with moderate concentric left hypertrophy, mild mitral regurgitation. Patient remains in the intensive care unit. No chest pain, no shortness of breath, no lightheadedness or dizziness. Patient is off nitroglycerin drip and off heparin drip. Patient is to be t ransferred to the cardiac stepdown unit. Patient has been afebrile, heart rate 79, blood pressure 122/67, pulse ox 97% on room air. REVIEW OF SYSTEMS Constitutional: No fever, no chills, Reported sweats. No weight change. No weakness, fatigue or lethargy. No daytime sleepiness. EENT: No headache. No blurred vision or double vision, no loss of vision. No dizziness. No nasal drainage or congestion. No epistaxis. No sore throat. Lungs: No shortness of breath, cough, no sputum production. No wheezing. Cardiovascular: Denies chest pain, no lower extremity edema. No palpitations. No paroxysmal nocturnal dyspnea. No orthopnea. No lightheadedness or dizziness. No syncopal episodes. Abdominal: No abdominal pain. Reported nausea, vomiting. No diarrhea. No constipation. No bloody or tarry stools. No loss of appetite. Genitourinary: No dysuria, increased frequency, urgency. No urinary retention. Musculoskeletal: No myalgias. No muscle weakness, no gait dysfunction, no frequent falls. No back pain. No neck pain. Integumentary: No wounds, no lesions. No rash or pruritus. No unusual bruising. No change in hair or nails. Neurologic: No aphasia. No facial droop. No change in mentation. No head injury. No headache. No paralysis. No paresthesia. Psychiatric: No depression. No anxiety. No mood swings. Endocrine: No abnormal blood sugars. PHYSICAL EXAMINATION Gen: This is a 45-year-old male. He is resting in the ICU bed and appears to be comfortable and in no acute distress. HEENT: Head is atraumatic, normocephalic. Pupils equal, round. Sclerae is anicteric. NECK: Supple. No JVD. No lymphadenopathy. No thyromegaly. LUNGS: Clear to auscultation. No wheezes or rhonchi. No intercostal retractions. HEART: Regular rate and rhythm. No murmur. ABDOMEN: Soft. Bowel sounds are present. No masses. No tenderness. EXTREMITIES: No pedal edema. No calf tenderness. Dorsalis pedis +2 bilaterally. NEUROLOGICAL: Patient is awake, alert and oriented x3. Cranial nerves 2 through 12 are grossly intact. ASSESSMENT AND PLAN 1. New-onset left bundle branch block with initial EKG concerning for Scarbossa's criteria, consistent with STEMI equivalent. Status post left heart catheterization, bilateral coronary angiography, PCI LAD with kissing balloon angioplasty of the LAD and diagonal 2 branch, aspiration thrombectomy. Patient is maintained in the intensive care unit. Continue aspirin 81 mg daily, Lipitor 80 mg daily, Lasix 20 mg twice daily, Imdur 30 mg daily, lisinopril 2.5 mg twice daily, Lopressor 25 mg twice daily, Aldactone 25 mg daily, Brilinta 90 mg twice daily. Echocardiogram as above. Transfer to cardiac stepdown unit 2. Osteoarthritis right shoulder, stable. 3. Alcohol use. 4. GI prophylaxis. Protonix. 5. DVT prophylaxis. Heparin. DISCHARGE PLAN Home Impression and plan of care have been directed as dictated by the signing physician. Sushila Segovia nurse practitioner acting as scribe for signing physician. Objective - Vital Signs Vital signs: Vital Signs Temp 98.6 F 01/24/21 08:00 Pulse 72 01/24/21 09:00 Resp 21 01/24/21 08:00 BP 101/59 01/24/21 08:00 Pulse Ox 96 01/24/21 09:00 Intake & Output 01/23/21 01/24/21 01/24/21 18:59 06:59 18:59 Intake Total 419.25 546.527 20 Output Total 1650 2325 0 Balance -1230.75 -1778.473 20 Weight 102.3 kg 97.4 kg Intake: IV 220 260 20 Sodium Chloride 0.9% 1, 220 260 20 000 ml @ 20 mls/hr IV . Q24H RYLAN Rx#:[id number] Intake, IV Titration 199.25 286.527 Amount Heparin Sod,Pork in 0.45% 46 286.527 NaCl 25,000 unit In 0.45 % NaCl 1 250ml.bag @ 10. 254 UNITS/KG/HR 10 mls/hr IV .Q24H RYLAN Rx#: [id number] Nitroglycerin-D5w Pmx 50 153.25 mg In Dextrose/Water 1 250ml.bag @ 100 MCG/MIN 30 mls/hr IV .Q8H20M RYLAN Rx#:[id number] Output: Urine 1650 2325 0 Other: # Voids 1 - Labs CBC & Chem 7: 01/23/21 03:23 01/24/21 03:45 Labs: Abnormal Lab Results - Last 24 Hours (Table) 01/23/21 01/23/21 01/23/21 Range/Units 09:47 13:01 13:01 APTT 55.2 H (22.0-30.0) sec Troponin I 28.000 H* 18.700 H* (0.000-0.034) ng/mL 01/24/21 Range/Units 03:45 APTT 34.2 H (22.0-30.0) sec Troponin I (0.000-0.034) ng/mL
[2021-01-24 23:29] VITALS: RESP 16
[2021-01-25 08:23] LABS: African American GFR (CKD) >90 (>60 ml/min/1.73 sqM); Anion Gap 9 mmol/L; Blood Urea Nitrogen 14 mg/dL (9-20); Calcium 9.7 mg/dL (8.4-10.2); Carbon Dioxide 26 mmol/L (22-30); Chloride 104 mmol/L (98-107); Glucose 106 mg/dL (74-99); Non-African American GFR(CKD) >90 (>60 ml/min/1.73 sqM); Potassium 4.2 mmol/L (3.5-5.1); Sodium 139 mmol/L (137-145)
[2021-01-25] MEDS: FUROSEMIDE 20 MG TAB PO SCH (08:44)
[2021-01-25] MEDS: ASPIRIN 81 MG PO SCH (08:45)
[2021-01-25] MEDS: ATORVASTATIN 80 MG TAB PO SCH (08:45)
[2021-01-25] MEDS: SPIRONOLACTONE 25 MG TAB PO SCH (08:45)
[2021-01-25] MEDS: METOPROLOL TARTRATE 25 MG TAB PO SCH (08:45)
[2021-01-25] MEDS: lisinopriL 5 MG TAB PO SCH (08:45)
[2021-01-25] MEDS: TICAGRELOR 90 MG TAB PO SCH (08:45)
--- NOTE | 2021-01-25 10:08 | P.DS ---
Providers Date of admission: 01/22/21 23:10 Expected date of discharge: 01/25/21 Attending physician: Ousmane Kay Consults: 01/22/21 23:10 Consult Physician Urgent Consulting Provider: Kj Nichole Consult Reason/Comments: stemi Do you want consulting provider notified?: Yes 01/23/21 01:50 Consult Physician Routine Consulting Provider: [facility] Consult Reason/Comments: Post Interventional patient Do you want consulting provider notified?: Already Contacted Primary care physician: Bucky Arboleda MD Hospital Course: HISTORY OF PRESENT ILLNESS This is a 45-year-old male patient of Dr. Arboleda with history of OA right shoulder s/p injections. Patient states that he was camping with his family and he was carrying his son started developing a little bit of chest pain which she has had before but it usually goes away. He went to carry his second son who is color tester in weight had increasing tightness, pain in the left arm, sweats, nausea, palpitations and lightheadedness. EMS was contacted and patient was transferred to [facility] emergency center for evaluation. Vital signs are stable. EKG was a left bundle branch block with ST elevation in V3 V4, cardiology was contacted and patient was taken emergently to the corn lab technician and underwent left heart catheterization, bilateral coronary angiography, PCI pr oximal LAD with a 3.25 x 18mm Xience ALFREDO, with kissing balloon angioplasty of LAD and diagonal 2 branch, Penumbra aspiration thrombectomy with Dr. Duckworth. Patient is currently maintained in the intensive care unit on heparin drip and nitroglycerin drip. He states he occasionally gets some chest pain on the left side. He has been hemodynamically stable. 01/24: Echocardiogram reveals EF of 35-40% with moderate concentric left hypertrophy, mild mitral regurgitation. Patient remains in the intensive care unit. No chest pain, no shortness of breath, no lightheadedness or dizziness. Patient is off nitroglycerin drip and off heparin drip. Patient is to be transferred to the cardiac stepdown unit. Patient has been afebrile, heart rate 79, blood pressure 122/67, pulse ox 97% on room air. 01/25: Patient denies having any chest pain, no shortness of breath. He is ambulated and has not experienced lightheadedness or dizziness. He has been afebrile, heart rate 95, blood pressure 110/69, pulse ox 97% on room air. Repeat blood work reveals normal BMP. Blood sugar 106. Patient will be discharged home today in stable condition. ASSESSMENT AND PLAN 1. New-onset left bundle branch block with initial EKG concerning for Scarbossa's criteria, consistent with STEMI equivalent. Status post left heart catheterization, bilateral coronary angiography, PCI LAD with kissing balloon angioplasty of the LAD and diagonal 2 branch, aspiration thrombectomy. 2. Osteoarthritis right shoulder, stable. 3. Alcohol use. DISCHARGE PLAN Home Impression and plan of care have been directed as dictated by the signing physician. Sushila Segovia nurse practitioner acting as scribe for signing physician. Patient Condition at Discharge: Good Plan - Discharge Summary New Discharge Prescriptions: New Ticagrelor [Brilinta] 90 mg PO BID #60 tab Spironolactone [Aldactone] 25 mg PO DAILY #30 tab Atorvastatin [Lipitor] 80 mg PO DAILY #30 tab Metoprolol Tartrate [Lopressor] 25 mg PO BID #60 tab Nitroglycerin Sl Tabs [Nitrostat] 0.4 mg SUBLINGUAL Q5M PRN #25 tab PRN Reason: Chest Pain lisinopriL [Zestril] 5 mg PO BID #60 tab Aspirin 81 mg PO DAILY chew Furosemide [Lasix] 20 mg PO DAILY #30 tab Discontinued Diclofenac Sodium [Voltaren] 75 mg PO BID Discharge Medication List Ticagrelor [Brilinta] 90 mg PO BID #60 tab 01/23/21 [Rx] Aspirin 81 mg PO DAILY chew 01/25/21 [Rx] Atorvastatin [Lipitor] 80 mg PO DAILY #30 tab 01/25/21 [Rx] Furosemide [Lasix] 20 mg PO DAILY #30 tab 01/25/21 [Rx] Metoprolol Tartrate [Lopressor] 25 mg PO BID #60 tab 01/25/21 [Rx] Nitroglycerin Sl Tabs [Nitrostat] 0.4 mg SUBLINGUAL Q5M PRN #25 tab 01/25/21 [Rx] Spironolactone [Aldactone] 25 mg PO DAILY #30 tab 01/25/21 [Rx] lisinopriL [Zestril] 5 mg PO BID #60 tab 01/25/21 [Rx] Follow up Appointment(s)/Referral(s): Christo Duckworth DO [STAFF PHYSICIAN] - 1 Week Bucky Arboleda MD [Primary Care Provider] - 1 Week Patient Instructions/Handouts: Heart Attack (DC), Heart Failure (ER), Heart Healthy Diet (ED) Discharge Disposition: HOME SELF-CARE
[2021-01-25 11:49] LABS: Glucose,Whole Blood 84 mg/dL (75-99)
[2021-01-25 12:44] VITALS: BP 110/69
[2021-01-25 12:56] VITALS: PULSE 95; TEMP 97.9
--- NOTE | 2021-01-25 15:22 | P.PN ---
Subjective HISTORY OF PRESENTING ILLNESS This is a pleasant 45-year-old with past medical history significant for family history of coronary artery disease and orthopedic complaints. Patient was camping and walking with his son earlier today and then started to notice shortness breath, left-sided chest pain radiating down the arm and associated with diaphoresis. It was somewhat off and on however then became more intense. 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 He was given 4 baby aspirin and nitroglycerin with some improvement in his chest pain. Initial EKG showed sinus rhythm with left bundle branch block with accentuated discordant ST elevations in V3 V4 concerning for Scarbossa's criteria however this did improve on repeat EKG by the time he presented to emergency department. Patient still is having ongoing mild chest discomfort however much improved from beginning. He does have a family history of grandfather with MN in his 40s however has been checked with supposedly normal cholesterol in the past. He does not smoke, drinks a few beers most days, no illicit drugs. No prior history of left bundle-branch block. 01/25 Patient seen and examined. Patient denies any further chest pain or pressure. He denies any shortness breath. He has been walking the halls without difficulty. He is status post PCI of the LAD with kissing balloon of the diagonal branch. He did have moderate decrease in ejection fraction 35-40%. 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 REVIEW OF SYSTEMS At the time of my exam: CONSTITUTIONAL: Denies fever or chills. CARDIOVASCULAR: +chest pain, +shortness of breath, no orthopnea, PND or palpitations. RESPIRATORY: Denies cough. GASTROINTESTINAL: Denies abdominal pain, diarrhea, constipation, nausea or vo miting. MUSCULOSKELETAL: Denies myalgias. NEUROLOGIC: Denies numbness, tingling or weakness. ENDOCRINE: Denies fatigue, weight change, polydipsia or polyurina. GENITOURINARY: Denies burning, hematuria or urgency with micturation. HEMATOLOGIC: Denies history of anemia or bleeding. PHYSICAL EXAMINATION Vital signs reviewed. CONSTITUTIONAL: Mild distress. HEENT: Head is normocephalic. Pupils are equal, round. Sclerae anicteric. Mucous membranes of the mouth are moist. No JVD. No carotid bruit. CHEST EXAMINATION: Lungs are clear to auscultation. No chest wall tenderness is noted on palpation or with deep breathing. HEART EXAMINATION: Regular rate and rhythm. S1, S2 heard. No murmurs, gallops or rub. ABDOMEN: Soft, nontender. Positive bowel sounds. EXTREMITIES: 2+ peripheral pulses, no lower extremity edema and no calf tenderness. NEUROLOGIC EXAMINATION: Patient is awake, alert and oriented x3. ASSESSMENT 1. Acute coronary syndrome, STEMI equivalent status post PCI LAD 2. Hyperlipidemia 3. Alcohol use 4. Family history of coronary artery disease 5. Ischemic cardiomyopathy ejection fraction 35-40% PLAN Patient without any further angina-type symptoms. Continue with dual an tiplatelets. Continue with heart failure regimen as tolerated. Patient appears stable for discharge home from a cardiology standpoint. Objective - Vital Signs Vital signs: Vital Signs Temp 97.9 F 01/25/21 12:00 Pulse 95 01/25/21 12:00 Resp 16 01/25/21 12:00 BP 110/69 01/25/21 12:00 Pulse Ox 97 01/25/21 12:00 Intake & Output 01/24/21 01/25/21 01/25/21 18:59 06:59 18:59 Intake Total 20 1160 Output Total 0 300 Balance 20 860 Weight 94.7 kg Intake: IV 20 40 Sodium Chloride 0.9% 1, 20 40 000 ml @ 20 mls/hr IV . Q24H RYLAN Rx#:[id number] Oral 1120 Output: Urine 0 300 Other: # Voids 0 2 # Bowel Movements 4 - Labs CBC & Chem 7: 01/23/21 03:23 01/25/21 07:04 Labs: Abnormal Lab Results - Last 24 Hours (Table) 01/25/21 Range/Units 07:04 Glucose 106 H (74-99) mg/dL
== END 2021-01-25 17:03 | disposition home or self-care (01) | DRG 247 ==
LOC: EC 23:03 → 3SCARD 23:10 → 2SICU 01-23 01:22 → 3SCARD 01-24 18:46
PROVIDERS: ADMIT Internal Medicine Geriatric Medicine; ATTEND Internal Medicine Geriatric Medicine
PROC: B2151ZZ Fluoroscopy of Left Heart using Low Osmolar Contrast (ICD-10-PCS; 2021-01-22)
PROC: 027034Z Dilation of Coronary Artery, One Artery with Drug-eluting Intraluminal Device, Percutaneous Approach (ICD-10-PCS; principal; 2021-01-22 23:40)
PROC: 02C13ZZ Extirpation of Matter from Coronary Artery, Two Arteries, Percutaneous Approach (ICD-10-PCS; 2021-01-22 23:40)
PROC: 4A023N7 Measurement of Cardiac Sampling and Pressure, Left Heart, Percutaneous Approach (ICD-10-PCS; 2021-01-22 23:40)
PROC: B2111ZZ Fluoroscopy of Multiple Coronary Arteries using Low Osmolar Contrast (ICD-10-PCS; 2021-01-22 23:40)
DX: I21.4 Non-ST elevation (NSTEMI) myocardial infarction (principal); E78.5 Hyperlipidemia, unspecified; I10 Essential (primary) hypertension; I25.10 Atherosclerotic heart disease of native coronary artery without angina pectoris; I25.2 Old myocardial infarction; I25.5 Ischemic cardiomyopathy; I44.7 Left bundle-branch block, unspecified; M19.011 Primary osteoarthritis, right shoulder; Z20.822 Contact with and (suspected) exposure to COVID-19; X50.0XXA Overexertion from strenuous movement or load, initial encounter; Z79.02 Long term (current) use of antithrombotics/antiplatelets; Z79.82 Long term (current) use of aspirin; Z79.899 Other long term (current) drug therapy; Z87.891 Personal history of nicotine dependence; Z98.61 Coronary angioplasty status
CPT/HCPCS: 36415; 71045; 80048; 80053; 80061; 82550; 82553; 82565; 83735; 83880; 84484; 85025; 85610; 85730; 92921; 92973; 93005; 93306; 93458